=== PATIENT | female | born 1960 | race Caucasian/White ===

== ENCOUNTER → 2017-05-23 | Outpatient (CLI) | payer BC ==
[~2017-05-23] MED LIST: ACETAMINOPHEN PO; ANTIVERT PO; BACTRIM DS TABL1 TA1 PO; BACTRIM DS TABL1 TA2 PO; EFFEXOR PO; FLEXERIL10 M1 PO; KEFLEX PO; LEVAQUIN PO; LORTAB 5/500 TA1 TA1 PO; MELOXICAM15 MG PO; MOTRIN600 M1 PO; NO MEDICATIONS; PANTOPRAZOLE SO40 MG PO; PHENERGAN PO; PSEUDOPHED; SUDAFED PO; VICODIN 5/1 TAB 5/50 PO
--- NOTE | ~2017-05-23 | ST ---
Unit #: [id number] #: [id number] Patient: NINA GUADALUPE [id number] [address] [address] [id number] MR#: [id number] NAME: NINA GUADALUPE. : 1960 SEX: F STUDY DATE/TIME: 05/23/2017 UNIT: [facility] ROOM: STUDY DESCRIPTION: STRESS NUCLEAR AND ECG Attending Physician: Evan Guerrero M.D. Referring Physician: Evan Guerrero M.D. Primary Care Physician: Radha Eric M.D. CARDIOLOGY REPORT EXAM Stress nuclear and ECG combined INDICATIONS Abnormal ECG, inability to exercise adequately chest pain, tobacco abuse previously, preoperative knee surgery 07/10/2017. SUMMARY Patient was given Lexiscan intravenously while at rest. The patient was also given technetium 99 Cardiolite, 11.43 and 32.3 mCi at rest and stress, respectively. Appropriate views were obtained. FINDINGS The rest ECG showed no ST changes. There were single PVCs noted. With stress, there was considerable baseline artifact, but no diagnostic ST shifts. ST segments in lead 3 became slightly down going with stress. Heart rate increased from 85-130, and blood pressure decreased 169/87 to 152/89. The patient experienced headache and shortness of breath. Perfusion images demonstrate chest wall and breast attenuation artifact, intestinal artifact, but otherwise normal perfusion at both rest and stress. Gated perfusion wall motion analysis demonstrates normal wall motion throughout the myocardium with end diastolic volume 96 mL, ejection fraction 67%. Planar images demonstrate no significant patient motion at rest or stress. There is chest wall attenuation artifact, breast attenuation artifact, but no LV or RV enlargement and no increased lung uptake. Summed stress score of 0. IMPRESSION 1. Myocardial perfusion scan demonstrates no ischemia or infarction. 2. Normal wall motion with excellent ejection fraction. 3. Nonspecific symptoms with Lexiscan. Dictated by... Anders Larkin M.D. BILL/kelsi Unit #: [id number] #: [id number] Patient: NINA GUADALUPE TD: 05/23/2017 19:15 JOB #: [id number] CARDIOLOGY REPORT Page 1 of 1 X Anders Larkin MD CARDIOLOGY REPORT
== END | disposition home or self-care (01) ==
LOC: CNUC 08:33
DX: Z01.810 Encounter for preprocedural cardiovascular examination (principal); I35.1 Nonrheumatic aortic (valve) insufficiency; I70.0 Atherosclerosis of aorta
CPT/HCPCS: 78452; 93017; 93306; A9500; J2785